=== PATIENT | male | born 1950 | race Caucasian/White ===

== ENCOUNTER 2018-01-14 13:44 | Emergency (ER) | payer OTHER ==
[~2018-01-14] VITALS: Ht 180.3 cm; Wt 93.0 kg
[2018-01-14 13:49] VITALS: BP 138/74; PULSE 87; RESP 20; TEMP 98.1; O2SAT 99
--- NOTE | 2018-01-14 14:11 | PD ---
HPI Chief Complaint: Edema Time Seen by Provider: 13:57 Travel History International Travel<30 days: No Contact w/Intl Traveler<30days: No Traveled to known affect area: No History of Present Illness HPI This is a 67-year-old male with history of atrial fibrillation who presents for evaluation of left foot ecchymosis. He noticed it incidentally yesterday when he was putting on a sock. He denies any pain in his left foot or leg. He does not recall any injuries. He does report that one week ago he had a twinge of pain in his left calf which spontaneously resolved. He is on Coumadin for treatment of atrial fibrillation. His retail marketing specialist checks his INR and regular basis and 5 days ago he had an INR check and was 18. His Coumadin was ceased at that time. His INR was rechecked 2 days ago and was 1.5 but his retail marketing specialist Dr. Tomlin recommended full dose aspirin on a regular basis and he is to continue not taking Coumadin as of right now. He is an easy bruising secondary to his anticoagulation use. He denies chest pain, shortness of breath. He has no other complaints. PFSH Past Medical History Hx Anticoagulant Therapy: Yes (aspirin 325) Atrial Fibrillation: Yes Social History Alcohol Use: Yes Tobacco Use: No Allergies-Medications (Allergen,Severity, Reaction): Coded Allergies: No Known Allergies (Unverified , 01/14/18) Reported Meds & Prescriptions Reported Meds & Active Scripts Active Reported Terazosin (Terazosin HCl) 5 Mg Cap 5 Mg PO HS Ferrous Sulfate 325 Mg (65 Mg Iron) Tablet 65 Mg PO DAILY Aspirin 325 Mg Tab 325 Mg PO DAILY Omeprazole 40 Mg Cap 40 Mg DAILY Lisinopril 20 Mg Tab 20 Mg PO DAILY Review of Systems Except as stated in HPI: all other systems reviewed are Neg Physical Exam Narrative GENERAL: Pleasant well-developed well-nourished male in no acute distress SKIN: Warm and dry.Some ecchymosis is noted on the medial and lateral aspect of left foot base. Various bruises are noted on the extremities. HEAD: Atraumatic. Normocephalic. EYES: Pupils equal and round. No scleral icterus. No injection or drainage. ENT: No nasal bleeding or discharge. Mucous membranes pink and moist. NECK: Trachea midline. No JVD. CARDIOVASCULAR: Irregular rate and rhythm. No murmur appreciated. RESPIRATORY: No accessory muscle use. Clear to auscultation. Breath sounds equal bilaterally. GASTROINTESTINAL: Abdomen soft, non-tender, nondistended. Hepatic and splenic margins not palpable. MUSCULOSKELETAL: No obvious deformities. There is no pitting edema. Negative Homans. 2+ dorsalis pedis pulse bilaterally. Data Data Last Documented VS Vital Signs Date Time Temp Pulse Resp B/P (MAP) Pulse Ox O2 Delivery O2 Flow Rate FiO2 01/14/18 13:49 98.1 87 20 138/74 (95) 99 Orders Orders Us Leg Venous Doppler (01/14/18 14:07) Complete Blood Count With Diff (01/14/18 14:07) Basic Metabolic Panel (Bmp) (01/14/18 14:07) Foot, Complete ([id number]) (01/14/18 ) Act Partial Throm Time (Ptt) (01/14/18 14:07) Prothrombin Time / Inr (Pt) (01/14/18 14:07) Labs Laboratory Tests Test 01/14/18 14:02 White Blood Count 4.3 TH/MM3 Red Blood Count 3.98 MIL/MM3 Hemoglobin 13.4 GM/DL Hematocrit 39.4 % Mean Corpuscular Volume 98.9 FL Mean Corpuscular Hemoglobin 33.7 PG Mean Corpuscular Hemoglobin Concent 34.0 % Red Cell Distribution Width 14.0 % Platelet Count 169 TH/MM3 Mean Platelet Volume 10.2 FL Neutrophils (%) (Auto) 65.6 % Lymphocytes (%) (Auto) 14.8 % Monocytes (%) (Auto) 17.5 % Eosinophils (%) (Auto) 1.0 % Basophils (%) (Auto) 1.1 % Neutrophils # (Auto) 2.8 TH/MM3 Lymphocytes # (Auto) 0.6 TH/MM3 Monocytes # (Auto) 0.8 TH/MM3 Eosinophils # (Auto) 0.0 TH/MM3 Basophils # (Auto) 0.0 TH/MM3 CBC Comment DIFF FINAL Differential Comment Prothrombin Time 11.1 SEC Prothromb Time International Ratio 1.1 RATIO Activated Partial Thromboplast Time 31.3 SEC Blood Urea Nitrogen 7 MG/DL Creatinine 1.14 MG/DL Random Glucose 98 MG/DL Calcium Level 9.2 MG/DL Sodium Level 141 MEQ/L Potassium Level 3.9 MEQ/L Chloride Level 107 MEQ/L Carbon Dioxide Level 28.1 MEQ/L Anion Gap 6 MEQ/L Estimat Glomerular Filtration Rate 64 ML/MIN MDM Medical Decision Making Medical Screen Exam Complete: Yes Emergency Medical Condition: Yes Medical Record Reviewed: Yes Differential Diagnosis Ecchymosis, contusion, fracture, hematoma Narrative Course Patient appears well. Ultrasound of the left leg is normal. X-ray of the left foot is normal. Lab work is reassuring. INR is 1.1. Normal platelet count. He appears to have ecchymosis secondary to his anticoagulation use. Plan is to have him follow-up with his retail marketing specialist to discuss anticoagulation treatment. Stable for discharge. Diagnosis Primary Impression: Ecchymosis Additional Instructions: Follow-up with her retail marketing specialist as scheduled. Return for any emergent medical conditions. Med/Other Pt SpecificInfo: No Change to Meds Disposition: 01 DISCHARGE HOME Condition: Stable Sriram Cruz Jan 14, 2018 14:11
[2018-01-14] MEDS ORDERED: LISI-515 PO (14:18)
[2018-01-14] MEDS ORDERED: OMEP40CA2 (14:18)
[2018-01-14] MEDS ORDERED: ASPI-183 PO (14:18)
[2018-01-14] MEDS ORDERED: TERA5CAP3 PO (14:18)
[2018-01-14] MEDS ORDERED: FERR325T18 PO (14:18)
[2018-01-14 14:34] LABS: AUTOMATED NEUTROPHIL # 2.8 TH/MM3 (1.8-7.7); BASOPHIL % 1.1 % (0.0-2.0); HEMATOCRIT 39.4 % (39.0-51.0); HEMOGLOBIN 13.4 GM/DL (13.0-17.0); LYMPH % 14.8 % (9.0-44.0); LYMPHOCYTE # 0.6 TH/MM3 (1.0-4.8); MEAN CELL VOLUME 98.9 FL (80.0-100.0); MEAN CORPUSCULAR HEMOGLOBIN 33.7 PG (27.0-34.0); MEAN PLATELET VOLUME 10.2 FL (7.0-11.0); MONO % 17.5 % (0.0-8.0); MONOCYTE # 0.8 TH/MM3 (0-0.9); NEUT % 65.6 % (16.0-70.0); PLATELET COUNT 169 TH/MM3 (150-450); RED BLOOD COUNT 3.98 MIL/MM3 (4.50-5.90); WHITE BLOOD COUNT 4.3 TH/MM3 (4.0-11.0)
[2018-01-14 14:42] LABS: INTERNATIONAL NORMALIZED RATIO 1.1 RATIO; PROTHROMBIN TIME - PATIENT 11.1 SEC (9.8-11.6)
[2018-01-14 14:49] LABS: BICARBONATE 28.1 MEQ/L (21.0-32.0); CALCIUM 9.2 MG/DL (8.5-10.1); CREATININE 1.14 MG/DL (0.60-1.30)
--- NOTE | 2018-01-14 14:53 | RADRPT ---
EXAM DATE/TIME: 01/14/2018 14:17 [facility] COMPARISON: No previous studies available for comparison. INDICATIONS : discoloration and swelliing left foot MEDICAL HISTORY : None. SURGICAL HISTORY : None. ENCOUNTER: Initial ACUITY: 2 days PAIN SCORE: 0/10 LOCATION: Left Foot FINDINGS: Three view examination of the left foot demonstrates no soft tissue swelling, dislocation, or fractur e. The tarsal bones appear intact. Prominent calcaneal spur at the plantar aponeurosis. The interp halangeal and metatarsophalangeal joints are intact. The calcaneus is intact. Bony mineralization i s normal. CONCLUSION: 1. Calcaneal spur at the plantar aponeurosis. 2. Otherwise, no acute fracture. No significant degenerative changes. Phuc Knox MD on January 14, 2018 at 14:50 Board Certified Radiologist. This report was verified electronically.
--- NOTE | 2018-01-14 15:01 | RADRPT ---
EXAM DATE/TIME: 01/14/2018 14:19 [facility] COMPARISON: No previous studies available for comparison. INDICATIONS : Left leg pain. MEDICAL HISTORY : Anticoagulant therapy, asprin 325. SURGICAL HISTORY : None. ENCOUNTER: Initial ACUITY: 1 day PAIN SCORE: 0/10 LOCATION: Left leg. TECHNIQUE: Venous ultrasound of the leg was performed from the inguinal ligament to the proximal calf. Real-evette e, color Doppler and spectral tracing, compression and augmentation techniques were used. FINDINGS: There is normal compressibility of the deep venous system from the inguinal region to the proximal ca lf. No echogenic clot is seen in the lumen of the common femoral, femoral, popliteal, and posterior tibial veins. There is a normal response of the venous system to proximal and distal augmentation an d respiration. CONCLUSION: Negative exam. No sonographic or Doppler findings of deep venous thrombosis. Phuc Knox MD on January 14, 2018 at 14:59 Board Certified Radiologist. This report was verified electronically.
== END 2018-01-14 15:24 | disposition home or self-care (01) ==
LOC: NEPC 13:44
DX: R58 Hemorrhage, not elsewhere classified (principal); I48.91 Unspecified atrial fibrillation; Z79.01 Long term (current) use of anticoagulants; Z79.82 Long term (current) use of aspirin
CPT/HCPCS: 73630; 80048; 85025; 85610; 85730; 93971; 99285

== ENCOUNTER 2018-01-25 01:49 | Emergency (ER) | payer OTHER ==
[~2018-01-25] VITALS: Ht 180.3 cm; Wt 85.0 kg
[~2018-01-25 01:49] MED LIST: ASPI-183 PO; FERR325T18 PO; LISI-515 PO; OMEP40CA2; TERA5CAP3 PO
[2018-01-25 02:10] VITALS: BP 114/75; PULSE 73; RESP 16; TEMP 97.7; O2SAT 98
[2018-01-25] MEDS ORDERED: TETANUS/DIPHTHERIA TOXOID ADULT 0.5 ML VIAL IM ONE (02:30)
[2018-01-25 02:42] LABS: BASOPHIL % 0.9 % (0.0-2.0); EOSINOPHIL # 0.1 TH/MM3 (0-0.4); EOSINOPHIL % 2.8 % (0.0-4.0); HEMATOCRIT 39.9 % (39.0-51.0); LYMPH % 38.2 % (9.0-44.0); LYMPHOCYTE # 1.5 TH/MM3 (1.0-4.8); MEAN CELL VOLUME 97.5 FL (80.0-100.0); MEAN CORPUSCULAR HEMOGLOBIN 34.2 PG (27.0-34.0); MEAN CORPUSCULAR HGB CONC 35.1 % (32.0-36.0); MEAN PLATELET VOLUME 9.7 FL (7.0-11.0); MONO % 9.1 % (0.0-8.0); MONOCYTE # 0.4 TH/MM3 (0-0.9); PLATELET COUNT 201 TH/MM3 (150-450); RED BLOOD COUNT 4.09 MIL/MM3 (4.50-5.90); RED CELL DISTRIBUTION WIDTH 14.6 % (11.6-17.2)
[2018-01-25 02:51] LABS: ALBUMIN 3.6 GM/DL (3.4-5.0); ALKALINE PHOSPHATASE 56 U/L (45-117); ALT (GPT) 155 U/L (12-78); AST (GOT) 145 U/L (15-37); BICARBONATE 26.7 MEQ/L (21.0-32.0); BLOOD UREA NITROGEN 11 MG/DL (7-18); CALCIUM 8.9 MG/DL (8.5-10.1); CHLORIDE 106 MEQ/L (98-107); CREATININE 0.94 MG/DL (0.60-1.30); GLOMERULAR FILTRATION RATE 80 ML/MIN (>89); GLUCOSE,RANDOM 87 MG/DL (74-106); MAGNESIUM 1.8 MG/DL (1.5-2.5); SODIUM (NA) 142 MEQ/L (136-145); TOTAL BILIRUBIN ADULT 0.4 MG/DL (0.2-1.0); TOTAL PROTEIN 6.7 GM/DL (6.4-8.2)
--- NOTE | 2018-01-25 02:51 | RADRPT ---
EXAM DATE/TIME: 01/25/2018 02:36 [facility] COMPARISON: No previous studies available for comparison. INDICATIONS : Trauma; fall. RADIATION DOSE: 56.35 CTDIvol (mGy) MEDICAL HISTORY : Hypertension. SURGICAL HISTORY : None. ENCOUNTER: Initial ACUITY: 1 day PAIN SCALE: 5/10 LOCATION: cranial TECHNIQUE: Multiple contiguous axial images were obtained of the head. Using automated exposure control and adj ustment of the mA and/or kV according to patient size, radiation dose was kept as low as reasonably a chievable to obtain optimal diagnostic quality images. DICOM format image data is available electro nically for review and comparison. FINDINGS: CEREBRUM: The ventricles are normal for age. No evidence of midline shift, mass lesion, hemorrhage or acute in farction. Minimal periventricular and deep white matter tracts for vessel ischemic demyelination.. No extra-axial fluid collections are seen. POSTERIOR FOSSA: The cerebellum and brainstem are intact. The 4th ventricle is midline. The cerebellopontine angle i s unremarkable. EXTRACRANIAL: The visualized portion of the orbits is intact. SKULL: The calvaria is intact. No evidence of skull fracture. CONCLUSION: 1. Mild chronic changes with some periventricular and deep white matter tracts small vessel ischemic demyelination 2. Nothing acute. No fracture Phuc Knox MD on January 25, 2018 at 2:48 Board Certified Radiologist. This report was verified electronically.
[2018-01-25 02:52] LABS: PROTHROMBIN TIME - PATIENT 9.7 SEC (9.8-11.6)
--- NOTE | 2018-01-25 02:55 | RADRPT ---
EXAM DATE/TIME: 01/25/2018 02:36 [facility] COMPARISON: No previous studies available for comparison. INDICATIONS : Trauma; fall. RADIATION DOSE: 23.33 CTDIvol (mGy) MEDICAL HISTORY : Hypertension. SURGICAL HISTORY : None. ENCOUNTER: Initial ACUITY: 1 day PAIN SCALE: 5/10 LOCATION: Bilateral neck TECHNIQUE: Volumetric scanning of the cervical spine was performed. Multiplanar reconstructions in the sagittal, coronal and oblique axial planes were performed. Using automated exposure control and adjustment o f the mA and/or kV according to patient size, radiation dose was kept as low as reasonably achievable to obtain optimal diagnostic quality images. DICOM format image data is available electronically f or review and comparison. FINDINGS: Sagittal and coronal reconstructions show multilevel degenerative disc disease with bridging anterior osteophytes at C3-4. Small marginal osteophytes at C5 and C6 as well. Vertebral heights are maintain ed without fracture or listhesis. Spinal canal appears be adequate throughout C2-C3: Left facet hypertrophy. Spinal canal and neural foramina are patent C3-C4: Prominent anterior bridging osteophyte. Spinal canal and neural foramina are patent C4-C5: Mild uncovertebral ridging the spinal canal and neural foramina are patent C5-C6: Left facet hypertrophy. Mild vertebral ridging. Spinal canal and neural foramina are patent C6-C7: Right facet hypertrophy. Spinal canal and neural foramina are patent C7-T1: The bony spinal canal is normal in size. No evidence of disc bulge or herniation. The neural forami na are bilaterally patent. CONCLUSION: 1. Degenerative disc disease, most prominent at C3-4 with large bridging anterior osteophyte. 2. No fracture or listhesis. 3. Despite degenerative changes, the spinal canal and neural foramina appear to be patent throughout without cord or nerve root compromise. Phuc Knox MD on January 25, 2018 at 2:50 Board Certified Radiologist. This report was verified electronically.
[2018-01-25 04:18] VITALS: BP 134/61; PULSE 70; RESP 16; O2SAT 97
--- NOTE | 2018-01-25 04:25 | PD ---
HPI Chief Complaint: Fall Time Seen by Provider: 02:05 Travel History International Travel<30 days: No Contact w/Intl Traveler<30days: No Traveled to known affect area: No History of Present Illness HPI Patient presents to the emergency department after falling with LOC. Patient's just and he has had increased EtOH use since. He fell approximately 9 PM tonight, unsure of duration, but when he woke up he called 911 states that he hit his head on the bed frame. He denies chest pain, dyspnea, vision change , headache, neck pain. Takes aspirin has not been on Coumadin 2 weeks. States he felt secondary to EtOH. PFSH Past Medical History Hx Anticoagulant Therapy: Yes (aspirin 325) Atrial Fibrillation: Yes Diminished Hearing: No Hypertension: Yes Medical other: Yes (BPH) Past Surgical History Other Surgery: Yes (HYDROCELE) Social History Alcohol Use: Yes Tobacco Use: No Substance Use: Yes (MARIJUANA) Allergies-Medications (Allergen,Severity, Reaction): Coded Allergies: No Known Allergies (Unverified , 01/25/18) Reported Meds & Prescriptions Reported Meds & Active Scripts Active Reported Terazosin (Terazosin HCl) 5 Mg Cap 5 Mg PO HS Ferrous Sulfate 325 Mg (65 Mg Iron) Tablet 65 Mg PO DAILY Aspirin 325 Mg Tab 325 Mg PO DAILY Omeprazole 40 Mg Cap 40 Mg DAILY Lisinopril 20 Mg Tab 20 Mg PO DAILY Review of Systems Except as stated in HPI: all other systems reviewed are Neg Physical Exam Narrative GENERAL: No acute distress. SKIN: Focused skin assessment warm/dry. HEAD: Linear, 3.5-4 cm laceration left parietal area EYES: Pupils equal and round bilat. Extraocular muscles intact bilaterally. ENT: No nasal bleeding or discharge. Mucous membranes pink and moist. Poor dentition. NECK: Trachea midline. No JVD. No focal C-spine tenderness. CARDIOVASCULAR: Regular rate and rhythm. No murmur appreciated. RESPIRATORY: No accessory muscle use. Clear to auscultation. Breath sounds equal bilaterally. GASTROINTESTINAL: Abdomen soft, non-tender, nondistended. Hepatic and splenic margins not palpable. MUSCULOSKELETAL: Positive abrasions bilateral upper extremities. No clubbing. No cyanosis. No edema. Pelvis stable, no focal T/L spine TTP. NEUROLOGICAL: Awake and alert. No obvious cranial nerve deficits. Motor grossly within normal limits. Normal speech. Normal ambulation. PSYCHIATRIC: Appropriate mood and affect; insight and judgment normal. Data Data Last Documented VS Vital Signs Date Time Temp Pulse Resp B/P (MAP) Pulse Ox O2 Delivery O2 Flow Rate FiO2 01/25/18 04:18 70 16 134/61 (85) 97 Room Air 01/25/18 02:10 97.7 Orders Orders Complete Blood Count With Diff (01/25/18 02:11) Comprehensive Metabolic Panel (01/25/18 02:11) Prothrombin Time / Inr (Pt) (01/25/18 02:11) Act Partial Throm Time (Ptt) (01/25/18 02:11) Magnesium (Mg) (01/25/18 02:11) Ct Brain W/O Iv Contrast(Rout) (01/25/18 02:11) Alcohol (Ethanol) (01/25/18 02:11) Ct Cerv Spine W/O Contrast (01/25/18 ) Tetanus/Diphtheria Tox Adult (Tetanus/Di (01/25/18 02:30) Labs Laboratory Tests Test 01/25/18 02:15 White Blood Count 4.0 TH/MM3 Red Blood Count 4.09 MIL/MM3 Hemoglobin 14.0 GM/DL Hematocrit 39.9 % Mean Corpuscular Volume 97.5 FL Mean Corpuscular Hemoglobin 34.2 PG Mean Corpuscular Hemoglobin Concent 35.1 % Red Cell Distribution Width 14.6 % Platelet Count 201 TH/MM3 Mean Platelet Volume 9.7 FL Neutrophils (%) (Auto) 49.0 % Lymphocytes (%) (Auto) 38.2 % Monocytes (%) (Auto) 9.1 % Eosinophils (%) (Auto) 2.8 % Basophils (%) (Auto) 0.9 % Neutrophils # (Auto) 2.0 TH/MM3 Lymphocytes # (Auto) 1.5 TH/MM3 Monocytes # (Auto) 0.4 TH/MM3 Eosinophils # (Auto) 0.1 TH/MM3 Basophils # (Auto) 0.0 TH/MM3 CBC Comment DIFF FINAL Differential Comment Prothrombin Time 9.7 SEC Prothromb Time International Ratio 1.0 RATIO Activated Partial Thromboplast Time 29.5 SEC Blood Urea Nitrogen 11 MG/DL Creatinine 0.94 MG/DL Random Glucose 87 MG/DL Total Protein 6.7 GM/DL Albumin 3.6 GM/DL Calcium Level 8.9 MG/DL Magnesium Level 1.8 MG/DL Alkaline Phosphatase 56 U/L Aspartate Amino Transf (AST/SGOT) 145 U/L Alanine Aminotransferase (ALT/SGPT) 155 U/L Total Bilirubin 0.4 MG/DL Sodium Level 142 MEQ/L Potassium Level 4.0 MEQ/L Chloride Level 106 MEQ/L Carbon Dioxide Level 26.7 MEQ/L Anion Gap 9 MEQ/L Estimat Glomerular Filtration Rate 80 ML/MIN Ethyl Alcohol Level 350 MG/DL MDM Medical Decision Making Medical Screen Exam Complete: Yes Emergency Medical Condition: Yes Interpretation(s) Last Impressions Head CT 01/25/18 0211 Signed Impressions: Service Date/Time: January 02:36 - CONCLUSION: 1. Mild chronic changes with some periventricular and deep white matter tracts small vessel ischemic demyelination 2. Nothing acute. No fracture Phuc Knox MD Cervical Spine CT 01/25/18 0000 Signed Impressions: Service Date/Time: January 02:36 - CONCLUSION: 1. Degenerative disc disease, most prominent at C3-4 with large bridging anterior osteophyte. 2. No fracture or listhesis. 3. Despite degenerative changes, the spinal canal and neural foramina appear to be patent throughout without cord or nerve root compromise. Phuc Knox MD Differential Diagnosis Skull fracture, intracranial bleed, C-spine fracture, EtOH intoxication, laceration Narrative Course Patient presents to the emergency department status post fall with LOC and alcohol intoxication. Head and C-spine CT negative for fracture, intracranial bleed, or dislocation. AST, ALT, alcohol level were increased. Patient was given tetanus shot. The patient's scalp laceration was irrigated with approximately 400 cc of normal saline and 6 talihsa were placed. Patient stable in the emergency department and observed for sobriety. 0712: Patient signed out to Dr. Shook for reassessment/sobriety. Procedures Procedure Narrative Wound irrigated with approximately 400 cc of normal saline. 6 talisha were placed to close the scalp laceration. Patient did not want any local anesthesia. Diagnosis Primary Impression: Alcohol abuse Additional Impressions: Fall Qualified Codes: W19.XXXA - Unspecified fall, initial encounter Scalp laceration Qualified Codes: S01.01XA - Laceration without foreign body of scalp, initial encounter Patient Instructions: Abuse of Alcohol (ED), General Instructions, Staple Care (ED) Additional Instructions: 1. Return in 5-7 days for staple removal. Cora Price MD January 25, 2018 04:25
--- NOTE | 2018-01-25 09:54 | RADRPT ---
EXAM DATE/TIME: 01/25/2018 09:30 [facility] COMPARISON: FOOT LEFT COMPLETE ([id number]), January 14, 2018, 14:17. INDICATIONS : Syncope, short of breath, left lateral rib pain. MEDICAL HISTORY : None. SURGICAL HISTORY : None. ENCOUNTER: Initial ACUITY: 1 day PAIN SCORE: 8/10 LOCATION: Left chest FINDINGS: The heart is enlarged. There is a hiatal hernia. The mediastinal contours are within normal limits. T he lungs are clear. The visualized bony structures are grossly intact CONCLUSION: 1. Hiatal hernia. 2. The lungs are clear. Mushtaq Tim MD on January 25, 2018 at 9:51 Board Certified Radiologist. This report was verified electronically.
--- NOTE | 2018-01-25 10:13 | PD ---
Data Data Last Documented VS Vital Signs Date Time Temp Pulse Resp B/P (MAP) Pulse Ox O2 Delivery O2 Flow Rate FiO2 01/25/18 04:18 70 16 134/61 (85) 97 Room Air 01/25/18 02:10 97.7 Orders Orders Complete Blood Count With Diff (01/25/18 02:11) Comprehensive Metabolic Panel (01/25/18 02:11) Prothrombin Time / Inr (Pt) (01/25/18 02:11) Act Partial Throm Time (Ptt) (01/25/18 02:11) Magnesium (Mg) (01/25/18 02:11) Ct Brain W/O Iv Contrast(Rout) (01/25/18 02:11) Alcohol (Ethanol) (01/25/18 02:11) Ct Cerv Spine W/O Contrast (01/25/18 ) Tetanus/Diphtheria Tox Adult (Tetanus/Di (01/25/18 02:30) Chest, Single Ap (01/25/18 ) Labs Laboratory Tests Test 01/25/18 02:15 White Blood Count 4.0 TH/MM3 Red Blood Count 4.09 MIL/MM3 Hemoglobin 14.0 GM/DL Hematocrit 39.9 % Mean Corpuscular Volume 97.5 FL Mean Corpuscular Hemoglobin 34.2 PG Mean Corpuscular Hemoglobin Concent 35.1 % Red Cell Distribution Width 14.6 % Platelet Count 201 TH/MM3 Mean Platelet Volume 9.7 FL Neutrophils (%) (Auto) 49.0 % Lymphocytes (%) (Auto) 38.2 % Monocytes (%) (Auto) 9.1 % Eosinophils (%) (Auto) 2.8 % Basophils (%) (Auto) 0.9 % Neutrophils # (Auto) 2.0 TH/MM3 Lymphocytes # (Auto) 1.5 TH/MM3 Monocytes # (Auto) 0.4 TH/MM3 Eosinophils # (Auto) 0.1 TH/MM3 Basophils # (Auto) 0.0 TH/MM3 CBC Comment DIFF FINAL Differential Comment Prothrombin Time 9.7 SEC Prothromb Time International Ratio 1.0 RATIO Activated Partial Thromboplast Time 29.5 SEC Blood Urea Nitrogen 11 MG/DL Creatinine 0.94 MG/DL Random Glucose 87 MG/DL Total Protein 6.7 GM/DL Albumin 3.6 GM/DL Calcium Level 8.9 MG/DL Magnesium Level 1.8 MG/DL Alkaline Phosphatase 56 U/L Aspartate Amino Transf (AST/SGOT) 145 U/L Alanine Aminotransferase (ALT/SGPT) 155 U/L Total Bilirubin 0.4 MG/DL Sodium Level 142 MEQ/L Potassium Level 4.0 MEQ/L Chloride Level 106 MEQ/L Carbon Dioxide Level 26.7 MEQ/L Anion Gap 9 MEQ/L Estimat Glomerular Filtration Rate 80 ML/MIN Ethyl Alcohol Level 350 MG/DL MDM Supervised Visit with JACQUE: No Narrative Course This is a 67-year-old male who presented to the emergency department having fallen while intoxicated. Labs demonstrate a mild transaminitis but are otherwise reassuring. Alcohol is 350. CT of the head and cervical spine are reassuring with no evidence of acute trauma. Patient was reporting some left- sided flank and rib pain when he was more clinically sober. Chest x-ray demonstrates no pneumothorax or underlying pulmonary contusion. I suspect he may have an occult rib fracture.I discussed this with the patient. Otherwise he appears well and I think is appropriate for outpatient management. Patient was discharged home. Diagnosis Primary Impression: Alcohol abuse Additional Impressions: Scalp laceration Qualified Codes: S01.01XA - Laceration without foreign body of scalp, initial encounter Fall Qualified Codes: W19.XXXA - Unspecified fall, initial encounter Patient Instructions: General Instructions, Abuse of Alcohol (ED), Staple Care (ED) Additional Instruction: 1. Return in 5-7 days for staple removal. Leigha Shook MD January 25, 2018 10:13
== END 2018-01-25 12:03 | disposition home or self-care (01) ==
LOC: NEPC 01:49
DX: F10.129 Alcohol abuse with intoxication, unspecified (principal); S01.01XA Laceration without foreign body of scalp, initial encounter; R07.81 Pleurodynia; I10 Essential (primary) hypertension; I48.91 Unspecified atrial fibrillation; F12.90 Cannabis use, unspecified, uncomplicated; W19.XXXA Unspecified fall, initial encounter; Y90.8 Blood alcohol level of 240 mg/100 ml or more; Z23 Encounter for immunization; Z79.899 Other long term (current) drug therapy
CPT/HCPCS: 12002; 70450; 71045; 72125; 80053; 80307; 83735; 85025; 85610; 85730; 90471; 90714